=== PATIENT | female | born 1930 | race Caucasian/White ===

== ENCOUNTER 2016-12-11 17:24 | Emergency (ER) | payer MEDICARE, BC ==
[2016-12-11] MEDS ORDERED: Albuterol/Ipratropium 3.0-0.5 MG/3 ML Neb Soln NEB ONE (18:38)
[2016-12-11] MEDS ORDERED: Piperacillin/Tazobactam 3.375 GM in Sodium Chloride 0.9% 50 ML IV SCH (18:45)
--- NOTE | 2016-12-11 19:42 | EDM.PDOC ---
ED HISTORY OF PRESENT ILLNESS - General Chief Complaint: Gastrointestinal Problem Stated Complaint: SWOLLEN ANKLES, VOMITING, NAUSEA Time Seen by Provider: 12/11/16 17:59 Source: Reports: Patient, [facility] records - History of Present Illness INITIAL COMMENTS - FREE TEXT/NARRATIVE: History of present illness: [This 86-year-old female presents to the emergency room with her daughter after being seen yesterday in the clinic where she was diagnosed with a UTI and started on Bactrim. She's been having some vague symptoms for about a month now although and her daughter is visiting from [facility] and brought her to the emergency room. She has some vague abdominal complaints anorexia nausea at times and decreased energy. She also says she feels feverish at night with some chills and this has been going on for a month. She had cough that has cleared. She had no dysuria with her diagnosis of UTI today she doesn't have any significant bowel pain is actually feels pretty good but I think just because her daughter is here they wanted another doctor to look at her situation and make some recommendations. She does have a history of aortic stenosis and will be following up with cardiology on that. 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 Past medical history: As per history of present illness and as reviewed below otherwise noncontributory. Surgical history: As per history of present illness and as reviewed below otherwise noncontributory. Social history: No reported history of drug or alcohol abuse. Family history: As per history of present illness and as reviewed below otherwise noncontributory. Physical exam: HEENT: Atraumatic, normocephalic, pupils reactive, negative for conjunctival pallor or scleral icterus, mucous membranes moist, throat clear, neck supple, nontender, trachea midline. Lungs: Clear to auscultation, breath sounds equal bilaterally, chest nontender. Heart: S1S2, regular, with a 4/6 systolic ejection murmur consistent with aortic stenosis Abdomen: Soft, nondistended, nontender. Negative for masses or hepatosplenomegaly. Negative for costovertebral tenderness. Pelvis: Stable nontender. Genitourinary: Deferred. Rectal: Deferred. Extremities: Atraumatic, negative for cords or calf pain. Neurovascular unremarkable. Neuro: Awake, alert, oriented. Cranial nerves II through XII unremarkable. Cerebellum unremarkable. Motor and sensory unremarkable throughout. Exam nonfocal. Diagnostics: [CBC shows a slight elevation of her white count complete metabolic panel shows a sodium 128 I did check her TSH free T4 as well urinalysis looks clean now] Therapeutics: [] Impression: [Recent UTI Hyponatremia may be secondary to Bactrim and Diamox Anorexia and vague feelings of malaise for one month Aortic stenosis] Plan: [Were stopping the Bactrim and putting her on Cipro 250 twice a day for 3 days. She will be following up for her glaucoma. She'll be following up for her aortic stenosis. I did encourage her to have aortic valve replacement and told her that she might feel better if this was done as far as her overall feeling of wellness.] Definitive disposition and diagnosis as appropriate pending reevaluation and review of above. - Related Data Allergies/ADRs: Allergies Allergy/AdvReac Type Severity Reaction Status Date / Time amoxicillin Allergy Rash Verified 11/03/15 14:45 Home Meds: Home Meds Fluticasone/Salmeterol [Advair 250-50] 1 puff PO BID 01/19/15 [History] Gluc 2KCl/Chondr/Levi Hy/Hy Ac [Glucosamine & Chondroitin Cap] 1 each PO DAILY 01/19/15 [History] Magnesium 300 mg PO DAILY 01/19/15 [History] Multivitamins [Multivitamins] 1 each PO DAILY 01/19/15 [History] Ubidecarenone [Coenzyme Q10] 10 mg PO DAILY 01/19/15 [History] atorvaSTATin [Lipitor] 20 mg PO DAILY 01/19/15 [History] Atropine Sulfate In 0.9% NaCl [Atropine 0.01%-Ns Eye Drops] 12/11/16 [History] Lisinopril [Lisinopril] 12/11/16 [History] Loteprednol Etabonate [Lotemax] 12/11/16 [History] Sulfamethoxazole/Trimethoprim [Bactrim Ds Tablet] 12/11/16 [History] acetaZOLAMIDE [Diamox] 12/11/16 [History] Past Medical History HEENT History: Reports: Glaucoma, Impaired vision, Macular degeneration Cardiovascular History: Reports: Heart murmur, Heart valve replacement, High cholesterol, Hypertension Respiratory History: Reports: Bronchitis, recurrent Gastrointestinal History: Reports: Chronic constipation, G[employer]D [employer] History: Reports: Neurological History: Reports: TIA - Infectious Disease History Infectious Disease History: Reports: Chicken pox, Measles, Mumps, Rubella, Shingles - Past Surgical History Cardiovascular Surgical History: Reports: Valve replacement GI Surgical History: Reports: Appendectomy, Colonoscopy, EGD Female Surgical History: Reports: Hysterectomy, Other (see below) Other Female Surgeries/Procedures: current tx of a uti Social & Family History - Family History Cardiac: Reports: Hypertension, [place] Neurological: Reports: Dementia - Tobacco Use Smoking Status *Q: Never Smoker Years of Tobacco use: 10 Used Tobacco, but Quit: Yes Month Tobacco Last Used: October Second Hand Smoke Exposure: No - Alcohol Use Days Per Week of Alcohol Use: 7 Number of Drinks Per Day: 1 Total Drinks Per Week: 7 - Recreational Drug Use Recreational Drug Use: No ED ROS GENERAL - Review of Systems Review Of Systems: ROS reveals no pertinent complaints other than HPI. ED EXAM, GENERAL - Physical Exam Exam: See Below Course - Vital Signs Last Recorded V/S: Last Vital Signs Temp 36.7 C 12/11/16 19:06 Pulse 82 12/11/16 20:23 Resp 16 12/11/16 19:06 BP 152/81 H 12/11/16 20:23 Pulse Ox 95 12/11/16 20:23 - Orders/Labs/Meds Orders: Active Orders 24 hr Category Date Time Status EKG Documentation Completion [RC] ASDIRECTED Care 12/11/16 18:35 Active RT Aerosol Therapy [RC] ASDIRECTED Care 12/11/16 18:38 Inactive EKG 12 Lead [EK] Stat Ther 12/11/16 18:34 Ordered Labs: Laboratory Tests 12/11/16 12/11/16 12/11/16 Range/Units 18:45 18:45 18:45 WBC 12.7 H (4.5-11.0) K/uL RBC 4.17 (3.30-5.50) M/uL Hgb 11.4 L (12.0-15.0) g/dL Hct 34.4 L (36.0-48.0) % MCV 83 (80-98) fL MCH 27 (27-31) pg MCHC 33 (32-36) % Plt Count 472 H (150-400) K/uL Neut % (Auto) 80 H (36-66) % Lymph % (Auto) 12 L (24-44) % [place] % (Auto) 7 H (2-6) % Eos % (Auto) 1 L (2-4) % Baso % (Auto) 0 (0-1) % Sodium 128 L (140-148) mmol/L Potassium 3.7 (3.6-5.2) mmol/L Chloride 95 L (100-108) mmol/L Carbon Dioxide 21 (21-32) mmol/L Anion Gap 15.7 H (5.0-14.0) mmol/L BUN 14 (7-18) mg/dL Creatinine 0.9 (0.6-1.0) mg/dL Est Cr Clr Drug Dosing 42.82 mL/min Estimated GFR (MDRD) 59 L (>60) Glucose 80 (74-106) mg/dL Lactic Acid 0.8 (0.4-2.0) mmol/L Calcium 8.2 L (8.5-10.1) mg/dL Total Bilirubin 0.2 (0.2-1.0) mg/dL AST 21 (15-37) U/L ALT 19 (12-78) U/L Alkaline Phosphatase 41 L (46-116) U/L Troponin I < 0.017 (0.000-0.056) ng/mL C-Reactive Protein 4.72 H (0.0-0.3) mg/dL Total Protein 6.9 (6.4-8.2) g/dL Albumin 2.6 L (3.4-5.0) g/dL Globulin 4.3 H (2.3-3.5) g/dL Albumin/Globulin Ratio 0.6 L (1.2-2.2) Free T4 (0.76-1.46) ng/dL TSH, Ultra Sensitive 5.884 H (0.358-3.740) uIU/mL Urine Color Urine Appearance Urine pH (4.5-8.0) Ur Specific Elliott (1.008-1.030) Urine Protein (NEGATIVE) mg/dL Urine Glucose (UA) (NEGATIVE) mg/dL Urine Ketones (NEGATIVE) mg/dL Urine Occult Blood (NEGATIVE) Urine Nitrite (NEGATIVE) Urine Bilirubin (NEGATIVE) Urine Urobilinogen (NORMAL) mg/dL Ur Leukocyte Esterase (NEGATIVE) Urine RBC (0-5) Urine WBC (0-5) Ur Epithelial Cells Amorphous Sediment Urine Bacteria Urine Mucus 12/11/16 12/11/16 Range/Units 19:59 20:19 WBC (4.5-11.0) K/uL RBC (3.30-5.50) M/uL Hgb (12.0-15.0) g/dL Hct (36.0-48.0) % MCV (80-98) fL MCH (27-31) pg MCHC (32-36) % Plt Count (150-400) K/uL Neut % (Auto) (36-66) % Lymph % (Auto) (24-44) % [place] % (Auto) (2-6) % Eos % (Auto) (2-4) % Baso % (Auto) (0-1) % Sodium (140-148) mmol/L Potassium (3.6-5.2) mmol/L Chloride (100-108) mmol/L Carbon Dioxide (21-32) mmol/L Anion Gap (5.0-14.0) mmol/L BUN (7-18) mg/dL Creatinine (0.6-1.0) mg/dL Est Cr Clr Drug Dosing mL/min Estimated GFR (MDRD) (>60) Glucose (74-106) mg/dL Lactic Acid (0.4-2.0) mmol/L Calcium (8.5-10.1) mg/dL Total Bilirubin (0.2-1.0) mg/dL AST (15-37) U/L ALT (12-78) U/L Alkaline Phosphatase (46-116) U/L Troponin I (0.000-0.056) ng/mL C-Reactive Protein (0.0-0.3) mg/dL Total Protein (6.4-8.2) g/dL Albumin (3.4-5.0) g/dL Globulin (2.3-3.5) g/dL Albumin/Globulin Ratio (1.2-2.2) Free T4 1.24 (0.76-1.46) ng/dL TSH, Ultra Sensitive (0.358-3.740) uIU/mL Urine Color Yellow Urine Appearance Clear Urine pH 7.0 (4.5-8.0) Ur Specific Elliott 1.010 (1.008-1.030) Urine Protein Negative (NEGATIVE) mg/dL Urine Glucose (UA) Normal (NEGATIVE) mg/dL Urine Ketones Negative (NEGATIVE) mg/dL Urine Occult Blood Negative (NEGATIVE) Urine Nitrite Negative (NEGATIVE) Urine Bilirubin Negative (NEGATIVE) Urine Urobilinogen Normal (NORMAL) mg/dL Ur Leukocyte Esterase Negative (NEGATIVE) Urine RBC 0-5 (0-5) Urine WBC 5-10 H (0-5) Ur Epithelial Cells Few Amorphous Sediment Few Urine Bacteria Rare Urine Mucus Few Meds: Medications Discontinued Medications Generic Name Dose Route Start Last Admin Trade Name Freq PRN Reason Stop Dose Admin Albuterol/Ipratropium 3 ml 12/11/16 18:38 12/11/16 19:43 Duoneb 3.0-0.5 Mg/3 Ml NEB 12/11/16 18:39 Not Given ONETIME ONE Piperacillin Sod/Tazobactam 50 mls @ 100 mls/hr 12/11/16 18:45 Sod 3.375 gm/ Sodium Chloride IV Q6H [facility] Departure - Departure Time of Disposition: 21:26 Disposition: Home, Self-Care 01 Condition: good Clinical Impression: Hyponatremia, Anorexia, Recent urinary tract infection Glaucoma Qualifiers: Glaucoma type: unspecified type Laterality: right Qualified Code(s): H40.9 - Unspecified glaucoma Aortic stenosis Qualifiers: Cardiac valve disease etiology: etiology unspecified Qualified Code(s): I35.0 - Nonrheumatic aortic (valve) stenosis Forms: ED Department Discharge Additional Instructions: Stop taking the Bactrim and take Cipro 250 mg one twice a day for 3 days. Followup with her specialist as we discussed. Hopefully getting off of the strong medications Intron for your glaucoma will help you feel better. And it could be that getting your aortic valve fixed we'll also help with your overall sense of well-being - My Orders Last 24 Hours: My Active Orders 12/11/16 18:34 EKG 12 Lead [EK] Stat 12/11/16 18:35 EKG Documentation Completion [RC] ASDIRECTED 12/11/16 18:38 RT Aerosol Therapy [RC] ASDIRECTED - Assessment/Plan Last 24 Hours: My Active Orders 12/11/16 18:34 EKG 12 Lead [EK] Stat 12/11/16 18:35 EKG Documentation Completion [RC] ASDIRECTED 12/11/16 18:38 RT Aerosol Therapy [RC] ASDIRECTED
[2016-12-11 20:23] VITALS: BP 152/81
== END 2016-12-11 21:42 | disposition home or self-care (01) ==
LOC: JP.ED 17:24
DX: E87.1 Hypo-osmolality and hyponatremia (principal); R63.0 Anorexia; N39.0 Urinary tract infection, site not specified; H40.9 Unspecified glaucoma; I35.0 Nonrheumatic aortic (valve) stenosis; E78.00 Pure hypercholesterolemia, unspecified; K21.9 Gastro-esophageal reflux disease without esophagitis; Z86.73 Personal history of transient ischemic attack (TIA), and cerebral infarction without residual deficits; Z90.49 Acquired absence of other specified parts of digestive tract; Z90.710 Acquired absence of both cervix and uterus; Z98.890 Other specified postprocedural states; Z79.82 Long term (current) use of aspirin; Z88.1 Allergy status to other antibiotic agents
CPT/HCPCS: 36415; 80053; 81001; 83605; 84439; 84443; 84484; 85025; 86140; 87804; 93005; 93010; 99284; 99284-25

== ENCOUNTER 2016-12-17 18:40 | Emergency (ER) | payer MEDICARE, BC ==
[2016-12-17] MEDS ORDERED: Sodium Chloride 0.9% 500 ML IV SCH (20:15)
--- NOTE | 2016-12-17 21:15 | EDM.PDOC ---
ED HISTORY OF PRESENT ILLNESS - General Chief Complaint: Cardiovascular Problem Stated Complaint: ILLNESS Time Seen by Provider: 12/17/16 19:30 Source: Reports: Patient, Family History Limitations: Reports: No limitations - History of Present Illness INITIAL COMMENTS - FREE TEXT/NARRATIVE: 86-year-old female who was recently treated for UTI is still getting low-grade fevers in the afternoons and has generalized malaise. Her blood pressure was 87 /60 at home so they wanted her checked again. She admits that she is not drinking fluids as well as she should be. She has no pain, other than being tired and weak she feels okay. No nausea or vomiting. She finished her ciprofloxacin 2 days ago. Severity: mild Associated Symptoms: Reports: fever/chills, weakness. Denies: chest pain, cough , nausea/vomiting, shortness of breath - Related Data Allergies/ADRs: Allergies Allergy/AdvReac Type Severity Reaction Status Date / Time amoxicillin Allergy Rash Verified 12/17/16 19:37 Home Meds: Home Meds Fluticasone/Salmeterol [Advair 250-50] 1 puff PO BID 01/19/15 [History] Gluc 2KCl/Chondr/Levi Hy/Hy Ac [Glucosamine & Chondroitin Cap] 1 each PO DAILY 01/19/15 [History] Magnesium 300 mg PO DAILY 01/19/15 [History] Multivitamins [Multivitamins] 1 each PO DAILY 01/19/15 [History] Ubidecarenone [Coenzyme Q10] 10 mg PO BID 01/19/15 [History] atorvaSTATin [Lipitor] 20 mg PO DAILY 01/19/15 [History] Atropine Sulfate In 0.9% NaCl [Atropine 0.01%-Ns Eye Drops] 1 drop TOP TID 12/11 [History] Lisinopril [Lisinopril] 1 tab PO DAILY 12/11/16 [History] acetaZOLAMIDE [Diamox] 1 tab PO BEDTIME 12/11/16 [History] Latanoprost [Latanoprost] 1 drop TOP BID 12/17/16 [History] Past Medical History HEENT History: Reports: Glaucoma, Impaired vision, Macular degeneration Cardiovascular History: Reports: Heart murmur, Heart valve replacement, High cholesterol, Hypertension Respiratory History: Reports: Bronchitis, recurrent Gastrointestinal History: Reports: Chronic constipation, GERD [employer]GER History: Reports: Neurological History: Reports: TIA - Infectious Disease History Infectious Disease History: Reports: Chicken pox, Measles, Mumps, Shingles - Past Surgical History Cardiovascular Surgical History: Reports: Valve replacement GI Surgical History: Reports: Appendectomy, Colonoscopy, EGD Female Surgical History: Reports: Hysterectomy, Other (see below) Other Female Surgeries/Procedures: current tx of a uti Social & Family History - Family History Cardiac: Reports: Hypertension, [place] Neurological: Reports: Dementia - Tobacco Use Smoking Status *Q: Never Smoker Years of Tobacco use: 10 Used Tobacco, but Quit: Yes Month Tobacco Last Used: October Second Hand Smoke Exposure: No - Caffeine Use Caffeine Use: Reports: Coffee - Alcohol Use Days Per Week of Alcohol Use: 7 Number of Drinks Per Day: 1 Total Drinks Per Week: 7 Date of Last Drink: 12/16/16 Time of Last Drink: 18:00 - Recreational Drug Use Recreational Drug Use: No ED ROS GENERAL - Review of Systems Review Of Systems: See Below Constitutional: Reports: fever, malaise, weakness. Denies: chills Respiratory: Denies: shortness of breath Cardiovascular: Denies: Chest pain GI/Abdominal: Denies: Abdominal pain, Nausea, Vomiting : Reports: other (Recent UTI but no symptoms) Neurological: Reports: weakness. Denies: headache ED EXAM, GENERAL - Physical Exam Exam: See Below Exam Limited By: No limitations General Appearance: alert, no apparent distress Eye Exam: bilateral eye: normal inspection Throat/Mouth: Normal inspection Respiratory/Chest: no respiratory distress, other (Some chronic sounding basilar crackles are present) Cardiovascular: regular rate, rhythm. No: bradycardia, tachycardia GI/Abdominal: soft, non tender Extremities: No: pedal edema Neurological: alert, oriented Course - Vital Signs Last Recorded V/S: Last Vital Signs Temp 99.5 F 12/17/16 19:52 Pulse 91 12/17/16 21:12 Resp 18 12/17/16 21:12 BP 102/62 12/17/16 21:12 Pulse Ox 92 L 12/17/16 21:12 - Orders/Labs/Meds Orders: Active Orders 24 hr Category Date Time Status CULTURE URINE [RM] Stat Lab 12/17/16 20:30 Received Labs: Laboratory Tests 12/17/16 12/17/16 12/17/16 Range/Units 20:04 20:14 20:14 WBC 13.6 H (4.5-11.0) K/uL RBC 4.02 (3.30-5.50) M/uL Hgb 11.0 L (12.0-15.0) g/dL Hct 33.9 L (36.0-48.0) % MCV 84 (80-98) fL MCH 27 (27-31) pg MCHC 32 (32-36) % Plt Count 426 H (150-400) K/uL Neut % (Auto) 82 H (36-66) % Lymph % (Auto) 9 L (24-44) % [place] % (Auto) 9 H (2-6) % Eos % (Auto) 1 L (2-4) % Baso % (Auto) 0 (0-1) % Sodium 133 L (140-148) mmol/L Potassium 3.6 (3.6-5.2) mmol/L Chloride 101 (100-108) mmol/L Carbon Dioxide 24 (21-32) mmol/L Anion Gap 11.6 (5.0-14.0) mmol/L BUN 13 (7-18) mg/dL Creatinine 0.9 (0.6-1.0) mg/dL Est Cr Clr Drug Dosing 42.00 mL/min Estimated GFR (MDRD) 59 L (>60) Glucose 112 H (74-106) mg/dL Calcium 8.3 L (8.5-10.1) mg/dL Total Bilirubin 0.3 (0.2-1.0) mg/dL AST 24 (15-37) U/L ALT 26 (12-78) U/L Alkaline Phosphatase 42 L (46-116) U/L Creatine Kinase 27 (26-192) U/L Total Protein 6.7 (6.4-8.2) g/dL Albumin 2.5 L (3.4-5.0) g/dL Globulin 4.2 H (2.3-3.5) g/dL Albumin/Globulin Ratio 0.6 L (1.2-2.2) Urine Color Yellow Urine Appearance Clear Urine pH 6.0 (4.5-8.0) Ur Specific [place] 1.015 (1.008-1.030) Urine Protein Negative (NEGATIVE) mg/dL Urine Glucose (UA) Normal (NEGATIVE) mg/dL Urine Ketones Negative (NEGATIVE) mg/dL Urine Occult Blood Negative (NEGATIVE) Urine Nitrite Negative (NEGATIVE) Urine Bilirubin Negative (NEGATIVE) Urine Urobilinogen Normal (NORMAL) mg/dL Ur Leukocyte Esterase Moderate (NEGATIVE) Urine RBC Not seen (0-5) Urine WBC 10-20 H (0-5) Ur Epithelial Cells Moderate Amorphous Sediment Not seen Urine Bacteria Moderate Urine Mucus Moderate Meds: Medications Discontinued Medications Generic Name Dose Route Start Last Admin Trade Name Freq PRN Reason Stop Dose Admin Sodium Chloride 500 mls @ 1,000 mls/hr 12/17/16 20:15 12/17/16 20:21 Normal Saline IV 1,000 mls/hr ASDIRECTED [facility] Administration - Re-Assessments/Exams Free Text/Narrative Re-Assessment/Exam: 12/17/16 21:45 CK CBC and CMP along with a repeat UA was obtained. Her UA taken in the clinic was evaluated, she grew Klebsiella and should respond to ciprofloxacin which she finished 2 days ago. The repeat UA was markedly improved with just 10-20 WBCs and a few bacteria, a culture was repeated. White count is now 13.2, slightly higher than 4 days ago. She had no significant temperature here in the emergency room, her initial blood pressure was 102/67. She was given 500 mL bolus of normal saline pending labs. 12/17/16 21:47 Patient felt better after the fluids. No further treatment or medication changes at this time but she can return if worsening. Recheck on Monday as scheduled. Departure - Departure Time of Disposition: 21:33 Disposition: Home, Self-Care 01 Condition: good Clinical Impression: Dehydration UTI (urinary tract infection) Qualifiers: Urinary tract infection type: acute cystitis Hematuria presence: without hematuria Qualified Code(s): N30.00 - Acute cystitis without hematuria Hypotension Qualifiers: Hypotension type: unspecified hypotension type Qualified Code(s): I95.9 - Hypotension, unspecified Instructions: Hypotension, [id number], Urinary Tract Infection, Adult, Easy- to-Read, Dehydration, Adult, [id number] Referrals: Mark Mendoza MD [Primary Care Provider] - Forms: ED Department Discharge Care Plan Goals: Continue current medications and drink lots of water. Return anytime if worsening such as persistent fever, difficulty breathing or you feel you need more evaluation. Recheck next week as scheduled. - My Orders Last 24 Hours: My Active Orders 12/17/16 20:30 CULTURE URINE [RM] Stat - Assessment/Plan Last 24 Hours: My Active Orders 12/17/16 20:30 CULTURE URINE [] Stat
[2016-12-17 21:22] VITALS: BP 102/62
== END 2016-12-17 21:33 | disposition home or self-care (01) ==
LOC: JP.ED 18:40
DX: N30.00 Acute cystitis without hematuria (principal); I95.9 Hypotension, unspecified; Z88.1 Allergy status to other antibiotic agents; Z79.899 Other long term (current) drug therapy; E78.00 Pure hypercholesterolemia, unspecified; Z90.710 Acquired absence of both cervix and uterus
CPT/HCPCS: 36415; 80053; 81001; 82550; 85025; 87086; 96360; 99284; J7040

== ENCOUNTER 2016-12-23 08:54 | Day surgery (SDC) | payer MEDICARE, BC ==
[2016-12-23] MEDS ORDERED: Dextrose 5%-Lactated Ringers 1,000 ML IV SCH (09:45)
[2016-12-23] MEDS ORDERED: Meropenem 500 MG in Sodium Chloride 0.9% 50 ML IV ONE (09:45)
[2016-12-23] MEDS ORDERED: Propofol 200 MG/20 ML SDV ONE (11:13)
[2016-12-23 13:01] VITALS: BP 133/76
--- NOTE | 2016-12-24 19:16 | OR ---
DATE OF PROCEDURE: 12/23/2016 PREOPERATIVE DIAGNOSIS: Clinical laryngopharyngeal dysphagia. POSTOPERATIVE DIAGNOSES: 1. Clinical laryngopharyngeal dysphagia with a normal hypopharynx, larynx, and upper esophageal sphincter. 2. Moderate (4 cm) hiatal hernia, with no gross inflammation. 3. Very mild antral gastritis. PROCEDURE: Esophagogastroduodenoscopy with biopsies of antrum for CLOtest. ANESTHESIA: IV sedation. INDICATIONS FOR PROCEDURE: An 86-year-old female presenting with some dysphagia-type symptoms referable to laryngopharyngeal area. The plan is proceed with upper GI endoscopy with biopsies and/or dilation as indicated. Potential risks including bleeding and perforation were discussed, and the patient wishes to proceed. DETAILS OF THE PROCEDURE: The patient was taken to the operating room and placed in a left lateral decubitus position. IV sedation was administered, after which the upper GI endoscope was passed orally through the length of the esophagus and the stomach with retroflexion view of the fundus, thereafter through the pyloric channel and into the proximal duodenum. Findings included a normal hypopharynx and larynx. Both of these areas had no anatomic abnormalities or redness or signs of inflammation. The upper esophageal sphincter was widely patent and likewise was otherwise unremarkable. The remainder of the esophagus was normal up to the EG junction, which was associated with roughly 4 cm hiatal hernia. This was without, however, significant inflammation and no upward extension of the gastroesophageal junction mucosal line, i.e., no evidence of Mcgill esophagus was seen and no stricturing identified at that level. In the antrum, there was very mild sense of redness and thickening of the gastric mucosa. No erosions or ulcers were seen. The pyloric channel and duodenum at the junction of third and fourth portions were unremarkable. At this point, biopsies were obtained from the antrum and sent for CLOtest for H. pylori. Minimal bleeding from the biopsy sites was seen, and the procedure was then concluded. At this point, I do not think we will start the patient on any additional medications. We will schedule her for an x-ray swallow study with speech pathology consultation to evaluate the laryngopharyngeal dysphagia. She will be instructed to follow up with Dr. Mendoza, perhaps a week after that x-ray study has been completed. Gunnar Squires MD /[id number]
== END 2016-12-23 13:05 | disposition home or self-care (01) ==
LOC: JP.SDS 08:54
PROVIDERS: ATTEND Surgery
DX: K29.50 Unspecified chronic gastritis without bleeding (principal); K44.9 Diaphragmatic hernia without obstruction or gangrene
CPT/HCPCS: 43239; 87081; J2185; J2704; J7042; J7050

== ENCOUNTER 2017-01-23 12:08 | Emergency (ER) | payer MEDICARE, BC ==
[2017-01-23] MEDS ORDERED: Sodium Chloride 0.9% 500 ML IV SCH (13:45)
--- NOTE | 2017-01-23 14:04 | EDM.PDOC ---
[id number] POSSIBLE DEYHDRATION Time Seen by Provider: 01/23/17 13:10 Source of Information: Reports: Patient, Family History Limitations: Reports: No limitations - History of Present Illness INITIAL COMMENTS - FREE TEXT/NARRATIVE: 86-year-old female who has been struggling with some progressive weakness over the past couple of weeks, has been treated twice for a UTI with 2 rounds of antibiotics, has lost her appetite and has had persistent nausea. Her daughter went to check on her after not seeing her for a couple weeks and felt she looked too weak to be by herself so called the clinic and they sent her to the emergency room. She is not having any significant pain, shortness of breath, nausea or vomiting or any specific symptoms other than just doesn't feel well and feels weak. Onset: unknown/unsure Location: Reports: generalized Severity: moderate Associated Symptoms: Reports: weakness, other (Decreased appetite). Denies: chest pain, cough, fever/chills, headaches, shortness of breath ears & throat Pain Score (Numeric/FACES): 4 - Related Data Allergies Allergy/AdvReac Type Severity Reaction Status Date / Time amoxicillin Allergy Rash Verified 01/23/17 15:18 Home Meds: Home Meds Fluticasone/Salmeterol [Advair 250-50] 1 puff PO BID 01/19/15 [History] Gluc 2KCl/Chondr/Levi Hy/Hy Ac [Glucosamine & Chondroitin Cap] 1 each PO DAILY 01/19/15 [History] Magnesium 300 mg PO DAILY 01/19/15 [History] Multivitamins [Multivitamins] 1 each PO DAILY 01/19/15 [History] Ubidecarenone [Coenzyme Q10] 10 mg PO BID 01/19/15 [History] atorvaSTATin [Lipitor] 20 mg PO DAILY 01/19/15 [History] Lisinopril [Lisinopril] 1 tab PO DAILY 12/11/16 [History] Latanoprost [Latanoprost] 1 drop TOP BID 12/17/16 [History] Aspirin [Ecotrin] 81 mg PO DAILY 12/21/16 [History] Atropine Sulfate 1 drop EYEBOTH DAILY 12/21/16 [History] Brimonidine/Timolol [Combigan 0.2%/0.5% Ophth Soln] 5 ml .XX ASDIRECTED [History] Lutein 20 mg PO DAILY 12/21/16 [History] Onabotulinumtoxina [Botox] 200 unit IJ ASDIRECTED 12/21/16 [History] Trifluridine [Viroptic] 7.5 ml OP DAILY 12/21/16 [History] acetaZOLAMIDE [Diamox Sequels] 500 mg PO DAILY 12/21/16 [History] Past Medical History HEENT History: Reports: Cataract, Glaucoma, Impaired vision Cardiovascular History: Reports: CAD, Heart Failure, Heart murmur, High cholesterol, Hypertension Respiratory History: Reports: Bronchitis, recurrent, Pneumonia, recurrent Gastrointestinal History: Reports: Chronic constipation, GERD Genitourinary History: Reports: Urinary incontinence, UTI, recurrent [employer] History: Reports: , Spontaneous Musculoskeletal History: Reports: Osteoarthritis Neurological History: Reports: TIA Psychiatric History: Reports: None Endocrine/Metabolic History: Reports: None Hematologic History: Reports: None Immunologic History: Reports: None Oncologic (Cancer) History: Reports: None Dermatologic History: Reports: None - Infectious Disease History Infectious Disease History: Reports: Chicken pox, Measles, Shingles - Past Surgical History HEENT Surgical History: Reports: Cataract surgery, Laser surgery Cardiovascular Surgical History: Reports: None Respiratory Surgical History: Reports: None GI Surgical History: Reports: Appendectomy, Colonoscopy Female Surgical History: Reports: D&C, Hysterectomy, Other (see below) Other Female Surgeries/Procedures: current tx of a uti Neurological Surgical History: Reports: None Musculoskeletal Surgical History: Reports: None Social & Family History - Family History Cardiac: Reports: Hypertension, [place] Neurological: Reports: Dementia - Tobacco Use Smoking Status *Q: Never Smoker Years of Tobacco use: 10 Packs/Tins Daily: 0.5 Used Tobacco, but Quit: Yes Month Tobacco Last Used: October Second Hand Smoke Exposure: No - Caffeine Use Caffeine Use: Reports: Coffee - Alcohol Use Days Per Week of Alcohol Use: 7 Number of Drinks Per Day: 1 Total Drinks Per Week: 7 - Recreational Drug Use Recreational Drug Use: No ED ROS GENERAL - Review of Systems Review Of Systems: See Below Constitutional: Reports: malaise, weakness, decreased appetite. Denies: fever, chills HEENT: Reports: No symptoms Respiratory: Denies: Shortness of Breath Cardiovascular: Denies: Chest pain GI/Abdominal: Reports: Nausea. Denies: Abdominal pain, Vomiting : Reports: other (Recent UTI, no current symptoms) Neurological: Denies: Headache ED EXAM, GENERAL - Physical Exam Exam: See Below Exam Limited By: No limitations General Appearance: alert, no apparent distress Respiratory/Chest: no respiratory distress, rales (A few basilar rales and decreased breath sounds at the bases) Cardiovascular: regular rate, rhythm GI/Abdominal: soft, non tender Extremities: No: pedal edema Neurological: alert, oriented Course - Vital Signs Last Recorded V/S: Last Vital Signs Temp 97.3 F 01/23/17 13:04 Pulse 99 01/23/17 15:29 Resp 16 01/23/17 15:29 BP 152/85 H 01/23/17 15:29 Pulse Ox 93 L 01/23/17 15:29 - Orders/Labs/Meds Labs: Laboratory Tests 01/23/17 01/23/17 01/23/17 Range/Units 13:45 13:45 15:01 WBC 11.6 H (4.5-11.0) K/uL RBC 3.79 (3.30-5.50) M/uL Hgb 9.6 L (12.0-15.0) g/dL Hct 30.9 L (36.0-48.0) % MCV 82 (80-98) fL MCH 25 L (27-31) pg MCHC 31 L (32-36) % Plt Count 692 H (150-400) K/uL Neut % (Auto) 79 H (36-66) % Lymph % (Auto) 10 L (24-44) % Hendricks % (Auto) 9 H (2-6) % Eos % (Auto) 1 L (2-4) % Baso % (Auto) 0 (0-1) % Sodium 131 L (140-148) mmol/L Potassium 4.1 (3.6-5.2) mmol/L Chloride 97 L (100-108) mmol/L Carbon Dioxide 30 (21-32) mmol/L Anion Gap 8.1 (5.0-14.0) mmol/L BUN 11 (7-18) mg/dL Creatinine 0.6 (0.6-1.0) mg/dL Est Cr Clr Drug Dosing 63.01 mL/min Estimated GFR (MDRD) > 60 (>60) Glucose 104 (74-106) mg/dL Calcium 8.4 L (8.5-10.1) mg/dL Total Bilirubin 0.3 (0.2-1.0) mg/dL AST 40 H (15-37) U/L ALT 38 (12-78) U/L Alkaline Phosphatase 69 (46-116) U/L Troponin I < 0.017 (0.000-0.056) ng/mL Total Protein 7.0 (6.4-8.2) g/dL Albumin 2.1 L (3.4-5.0) g/dL Globulin 4.9 H (2.3-3.5) g/dL Albumin/Globulin Ratio 0.4 L (1.2-2.2) TSH, Ultra Sensitive (0.358-3.740) uIU/mL Urine Color Yellow Urine Appearance Clear Urine pH 7.0 (4.5-8.0) Ur Specific Marion 1.010 (1.008-1.030) Urine Protein Negative (NEGATIVE) mg/dL Urine Glucose (UA) Normal (NEGATIVE) mg/dL Urine Ketones Negative (NEGATIVE) mg/dL Urine Occult Blood Trace (NEGATIVE) Urine Nitrite Negative (NEGATIVE) Urine Bilirubin Negative (NEGATIVE) Urine Urobilinogen Normal (NORMAL) mg/dL Ur Leukocyte Esterase Negative (NEGATIVE) Urine RBC 5-10 H (0-5) Urine WBC 0-5 (0-5) Ur Epithelial Cells Few Amorphous Sediment Not seen Urine Bacteria Few Urine Mucus Not seen 01/23/17 Range/Units 15:46 WBC (4.5-11.0) K/uL RBC (3.30-5.50) M/uL Hgb (12.0-15.0) g/dL Hct (36.0-48.0) % MCV (80-98) fL MCH (27-31) pg MCHC (32-36) % Plt Count (150-400) K/uL Neut % (Auto) (36-66) % Lymph % (Auto) (24-44) % Hendricks % (Auto) (2-6) % Eos % (Auto) (2-4) % Baso % (Auto) (0-1) % Sodium (140-148) mmol/L Potassium (3.6-5.2) mmol/L Chloride (100-108) mmol/L Carbon Dioxide (21-32) mmol/L Anion Gap (5.0-14.0) mmol/L BUN (7-18) mg/dL Creatinine (0.6-1.0) mg/dL Est Cr Clr Drug Dosing mL/min Estimated GFR (MDRD) (>60) Glucose (74-106) mg/dL Calcium (8.5-10.1) mg/dL Total Bilirubin (0.2-1.0) mg/dL AST (15-37) U/L ALT (12-78) U/L Alkaline Phosphatase (46-116) U/L Troponin I (0.000-0.056) ng/mL Total Protein (6.4-8.2) g/dL Albumin (3.4-5.0) g/dL Globulin (2.3-3.5) g/dL Albumin/Globulin Ratio (1.2-2.2) TSH, Ultra Sensitive 4.118 H (0.358-3.740) uIU/mL Urine Color Urine Appearance Urine pH (4.5-8.0) Ur Specific Marion (1.008-1.030) Urine Protein (NEGATIVE) mg/dL Urine Glucose (UA) (NEGATIVE) mg/dL Urine Ketones (NEGATIVE) mg/dL Urine Occult Blood (NEGATIVE) Urine Nitrite (NEGATIVE) Urine Bilirubin (NEGATIVE) Urine Urobilinogen (NORMAL) mg/dL Ur Leukocyte Esterase (NEGATIVE) Urine RBC (0-5) Urine WBC (0-5) Ur Epithelial Cells Amorphous Sediment Urine Bacteria Urine Mucus Meds: Medications Discontinued Medications Generic Name Dose Route Start Last Admin Trade Name Freq PRN Reason Stop Dose Admin Sodium Chloride 500 mls @ 1,000 mls/hr 01/23/17 13:45 01/23/17 14:11 Normal Saline IV 1,000 mls/hr ASDIRECTED [facility] Administration - Re-Assessments/Exams Free Text/Narrative Re-Assessment/Exam: 01/23/17 14:04 Patient will be given a 500 mL bolus of normal saline, CBC CMP and catheter specimen UA were obtained. 01/23/17 15:45 Patient's urine returned normal. Hemoglobin was somewhat lower than her last level but her other labs were reassuring. A TSH was added. Result will be called for the patient tomorrow, but she'll be discharged and told to stop the antibiotics as she may be having side effects. TSH was 4.1. Slightly abnormal but probably not of the cause of her symptoms. Departure - Departure Time of Disposition: 16:16 Disposition: Home, Self-Care 01 Condition: fair Clinical Impression: Weakness, Dehydration Instructions: Dehydration, Elderly Referrals: Mark Mendoza MD [Primary Care Provider] - Forms: ED Department Discharge Care Plan Goals: Increase diet and activity as tolerated, stop antibiotics to continue your other regular medications. Recheck in 2 weeks if not significantly better or return sooner if worsening or concerns.
[2017-01-23 16:15] VITALS: BP 152/85
== END 2017-01-23 16:17 | disposition home or self-care (01) ==
LOC: JP.ED 12:08
DX: R53.1 Weakness (principal); E86.0 Dehydration; I25.10 Atherosclerotic heart disease of native coronary artery without angina pectoris; I50.9 Heart failure, unspecified; I10 Essential (primary) hypertension; E78.00 Pure hypercholesterolemia, unspecified; Z86.73 Personal history of transient ischemic attack (TIA), and cerebral infarction without residual deficits; Z98.49 Cataract extraction status, unspecified eye; Z90.49 Acquired absence of other specified parts of digestive tract; Z79.82 Long term (current) use of aspirin; Z79.899 Other long term (current) drug therapy; Z88.1 Allergy status to other antibiotic agents
CPT/HCPCS: 36415; 80053; 81001; 84443; 84484; 85025; 96360; 96361; 99285; J7040; 99284